=== PATIENT | female | born 1950 | race American Indian/Alaskan Native ===

== ENCOUNTER 2021-05-08 10:20 | Emergency (ER) | payer MEDICARE ==
[2021-05-08 10:42] VITALS: BP 167/62
--- NOTE | 2021-05-08 12:12 | ED Elopement Review ---
ED Pt Elopement review - Results review Lab results: Laboratory Tests 05/08/21 10:41 POC Glucose 128 H I did not evaluate patient. Nurse called patient. She was already home resting in her bed. No further action needed. Patient left prior to being placed into treatment room. I reviewed EKG which did not have evidence of acute cardiac injury. - Call Back decision Pt Call Back Decision: No action required
== END 2021-05-08 10:50 | disposition left against medical advice (07) ==
LOC: ED 10:20
DX: R53.1 Weakness (principal); Z53.21 Procedure and treatment not carried out due to patient leaving prior to being seen by health care provider
CPT/HCPCS: 82962; 93005

== ENCOUNTER 2021-09-09 20:30 | Emergency (ER) | payer MEDICARE ==
[2021-09-09 20:43] VITALS: BP 206/76
[2021-09-09 21:15] LABS: Basophils % (Auto) 0.6 % (0.0-1.8); Eosinophils # (Auto) 0.1 K/mm3 (0.0-0.4); Eosinophils % (Auto) 1.7 % (0.0-4.3); Lymphocytes # (Auto) 1.8 K/mm3 (1.2-5.4); Lymphocytes % (Auto) 25.4 % (13.4-35.0); Mean Corpuscular HGB Conc 31 % (30-34); Mean Corpuscular Volume 84 fl (79-97); Monocytes # (Auto) 0.4 K/mm3 (0.0-0.8); Monocytes % (Auto) 5.7 % (0.0-7.3); Platelet Count 229 K/mm3 (140-440); Red Blood Count 5.18 M/mm3 (3.65-5.03); Red Cell Distribution Width 14.8 % (13.2-15.2)
[2021-09-09 21:24] LABS: Hematocrit 43.5 % (30.3-42.9); Hemoglobin 13.5 gm/dl (10.1-14.3)
[2021-09-09 21:31] LABS: Alanine Aminotransferase 19 units/L (7-56); Albumin 4.2 g/dL (3.9-5); Blood Urea Nitrogen 20 mg/dL (7-17); Calcium 9.3 mg/dL (8.4-10.2); Hemolysis Index 7
[2021-09-09 21:32] LABS: BUN/Creatinine Ratio 29
--- NOTE | 2021-09-09 22:28 | XRay Report ---
XR chest 1V ap INDICATION / CLINICAL INFORMATION: Chest Pain. COMPARISON: None available. FINDINGS: SUPPORT DEVICES: None. HEART /PULMONARY VASCULATURE: Cardiac enlargement with pulmonary vasculature congestion. Median putnam otomy changes. LUNGS / PLEURA: Bibasilar interstitial edema is present. No sizable pleural effusion. No pneumothorax . ADDITIONAL FINDINGS: No significant additional findings. IMPRESSION: Findings most consistent with CHF/volume overload with bibasilar interstitial edema. Signer Name: Gonzalo Tello MD Signed: 09/09/2021 10:23 PM Workstation Name: [id number]
[2021-09-09] MEDS ORDERED: oxyCODONE /ACETAMINOPHEN 5-325MG TAB PO ONE (23:13)
--- NOTE | 2021-09-09 23:13 | Emergency Department Report ---
ED Chest Pain HPI - General Chief Complaint: Chest Pain Stated Complaint: CHEST PAIN PUI?: No Time Seen by Provider: 09/09/21 20:44 Source: patient, EMS Mode of arrival: Stretcher Limitations: No Limitations - History of Present Illness Initial Comments: CC: chest pain HPI: This is a 70-year-old female with history of CABG, hypertension, diabetes mellitus who presents with right-sided chest pain radiating to the mid axillary region for the past week. She has had mild cough. She denies shortness of breath or leg pain. She normally takes gabapentin Tylenol for the pain. Her PCP is . She has had pain in this area since breast reduction several years ago. Worse over the last week. MD Complaint: chest pain -: Gradual, year(s) (Present for several years worse over last week) Onset: during rest Severity: moderate Severity scale (0 -10): 7 Quality: aching, other (Burning achy) Consistency: constant Improves With: medication-other (Improved with gabapentin Tylenol) Worsens With: nothing Other Symptoms: cough - Related Data Allergies Allergy/AdvReac Type Severity Reaction Status Date / Time No Known Allergies Allergy Verified 09/09/21 20:40 Heart Score - HEART Score History: Slightly suspicious EKG: Non-specific Age: > 65 Risk factors: 1-2 risk factors Troponin: < normal limit HEART Score: 4 - EKG Read Time Time EKG Completed: 21:06 EKG Read Time: 21:06 ED Review of Systems ROS: Stated complaint: CHEST PAIN Other details as noted in HPI Comment: All other systems reviewed and negative Constitutional: denies: chills, fever, malaise Respiratory: cough. denies: shortness of breath Cardiovascular: chest pain Skin: denies: rash Neurological: denies: headache ED Past Medical Hx - Past Medical History Previous Medical History?: Yes Hx Hypertension: Yes Hx Heart Attack/AMI: Yes Hx Congestive Heart Failure: Yes Hx Diabetes: Yes Hx Liver Disease: No Hx Sickle Cell Disease: No Hx Seizures: No Hx Psychiatric Treatment: No Hx Asthma: Yes Hx COPD: Yes Hx HIV: No - Surgical History Past Surgical History?: Yes Hx Open Heart Surgery: Yes Hx Pacemaker: No Additional Surgical History: R SIDE MASTECTOMY - Social History Smoking Status: Unknown if ever smoked Substance Use Type: None ED Physical Exam - General Limitations: No Limitations General appearance: alert, in no apparent distress - Head Head exam: Present: atraumatic, normocephalic - Eye Eye exam: Present: normal appearance - ENT ENT exam: Present: mucous membranes moist - Neck Neck exam: Present: normal inspection, full ROM - Respiratory Respiratory exam: Present: normal lung sounds bilaterally, chest wall tenderness (Well-healed old surgical scar under right breast). Absent: respiratory distress, wheezes, rhonchi, stridor - Cardiovascular Cardiovascular Exam: Present: regular rate, normal rhythm, normal heart sounds. Absent: systolic murmur, diastolic murmur, rubs, gallop - GI/Abdominal GI/Abdominal exam: Present: soft, normal bowel sounds - Extremities Exam Extremities exam: Present: normal inspection - Back Exam Back exam: Present: normal inspection - Neurological Exam Neurological exam: Present: alert, oriented X3 - Psychiatric Psychiatric exam: Present: normal affect, normal mood - Skin Skin exam: Present: warm, dry, intact, normal color. Absent: rash ED Course Vital Signs 09/09/21 20:40 Temperature 98.6 F Pulse Rate 88 Respiratory 14 Rate Blood Pressure 206/76 [Left] O2 Sat by Pulse 98 Oximetry ED Medical Decision Making - Lab Data Result diagrams: 09/09/21 20:51 09/09/21 20:51 - EKG Data -: EKG Interpreted by Nh EKG shows normal: sinus rhythm, axis, intervals Rate: normal - EKG Data Interpretation: nonspecific ST-T wave lucia, LVH 09/09/21 23:11 EKG@12/15/2005 EKG interpreted az Normal sinus rhythm 80 bpm normal axis normal intervals nonspecific T wave pattern positive LVH no ST elevation 09/09/21 23:11 - Radiology Data Radiology results: report reviewed Patient Name: ANOOP COX Gender: Female Date of : 1950 Referring Provider: OBED BURKS Organization: 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 COMPARISON: None available. FINDINGS: SUPPORT DEVICES: None. HEART /PULMONARY VASCULATURE: Cardiac enlargement with pulmonary vasculature congestion. Median sternotomy changes. LUNGS / PLEURA: Bibasilar interstitial edema is present. No sizable pleural effusion. No pneumothorax. ADDITIONAL FINDINGS: No significant additional findings. IMPRESSION: Findings most consistent with CHF/volume overload with bibasilar interstitial edema. Signer Name: Gonzalo Tello MD Signed: 09/09/2021 9:23 PM Workstation Name: [id number] - Medical Decision Making 1. Chronic right-sided chest wall pain without evidence of pneumonia or pulmonary embolism. No tachycardia or shortness of breath. Patient only takes gabapentin Tylenol. Have prescribed Percocet according to her request. Troponin negative 2. Hypertensive urgency due to medication noncompliance, patient referred to primary care physician. No evidence of endorgan damage 3. Elevated BNP with interstitial edema on chest radiograph. Patient does not have any shortness of breath or new leg swelling to indicate acute CHF exacerbation. Discharge home Critical care attestation.: If time is entered above; I have spent that time in minutes in the direct care of this critically ill patient, excluding procedure time. ED Disposition Clinical Impression: Chest wall pain, Hypertensive urgency Disposition: 01 HOME / SELF CARE / HOMELESS Is pt being admited?: No Does the pt Need Aspirin: No Condition: Stable Instructions: Nonspecific Chest Pain, Adult Referrals: KINDRA WISEMAN MD [Staff Physician] - 3-5 Days ALEX NOWAK MD [Staff Physician] - 3-5 Days
--- NOTE | 2021-09-13 12:09 | Electrocardiograph Report ---
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
== END 2021-09-10 00:17 | disposition home or self-care (01) ==
LOC: ED 20:30
DX: R07.89 Other chest pain (principal); I16.0 Hypertensive urgency; Z86.79 Personal history of other diseases of the circulatory system; E11.8 Type 2 diabetes mellitus with unspecified complications; J45.909 Unspecified asthma, uncomplicated
CPT/HCPCS: 36415; 71045; 80053; 83880; 84484; 85025; 93005; 99284